=== PATIENT | female | born 1980 | race African-American/Black ===

== ENCOUNTER 2020-03-19 23:28 | Emergency (ER) | payer SELFPAY ==
[~2020-03-19] VITALS: Ht 160 cm; Wt 50.8 kg
[2020-03-19 23:34] VITALS: BP 131/79
--- NOTE | 2020-03-19 23:41 | NUR ---
PT TAKEN TO BED 4
--- NOTE | 2020-03-19 23:46 | NUR ---
CALL MADE TO [employer]. -- PD TO BE ENROUTE TO ED TO INTERVIEW PATIENT. NO ETA GIVEN.
--- NOTE | 2020-03-19 23:52 | NUR ---
Dr. Alanis examining patient.
[2020-03-19] MEDS ORDERED: BACITRACIN OINT 500 UNITS/GM PKT TP ONE (23:55)
--- NOTE | 2020-03-20 | NUR ---
PT AMBULATED TO RESTROOM WITH STEADY GAIT. URINE COLLECTED, DIP AND PREG COMPETED. PT CLEAR FOR CT.
--- NOTE | 2020-03-20 00:05 | NUR ---
OFFICER ALLAN GARCIA AT BEDSIDE FOR INTERVIEW.
--- NOTE | 2020-03-20 00:05 | NUR ---
Shahab greenfield in [facility] - 03/20/20 at 0005 by [employer] [employer] AT BEDSIDE
--- NOTE | 2020-03-20 00:09 | NUR ---
PT TAKEN TO CT VIA WHEELCHAIR
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
--- NOTE | 2020-03-20 00:31 | NUR ---
PT TAKEN TO RADIOLOGY
--- NOTE | 2020-03-20 00:31 | NUR ---
PT RETURNED FROM CT
[2020-03-20] MEDS ORDERED: KETOROLAC 60 MG/2 ML VIAL IM ONE (00:35)
--- NOTE | 2020-03-20 00:41 | NUR ---
PT REFUSED TO MAKE A REPORT WITH PD AND WILL NOT STATE BOYFRIENDS NAME OR CONTACT INFO.
--- NOTE | 2020-03-20 00:42 | NUR ---
SHIRA REVELES AT BEDSIDE CLEANING AND DRESSING WOUNDS
--- NOTE | 2020-03-20 01:57 | NUR ---
pt has been cleared for d/c, however, she has no purse, money, or cell phone. states she[facility] staying [facility] in [place]. i called 4 different locations and there was noone in that particular room or by rhe 2 names she gave me. unable to provide with taxi voucher due to not having a specific address to go to. pt given bus pass but buses will not start runnimg until 5am. pt will leave at that time.
--- NOTE | 2020-03-20 05:21 | NUR ---
PT STATES "CAN I GO HOME NOW". PT LEFT FACILITY AT THIS TIME. PT DECLINED OFFER FOR HOMELESS RESOURCES, BUT DID ACCEPT BUS PASS. ALL QUESTIONS ANSWERED.
[2020-03-20 05:22] VITALS: BP 131/79
== END 2020-03-20 05:21 | disposition home or self-care (01) ==
LOC: MED 23:28
DX: S60.511A Abrasion of right hand, initial encounter (principal); R51 Headache; F17.210 Nicotine dependence, cigarettes, uncomplicated; X58.XXXA Exposure to other specified factors, initial encounter; Y93.89 Activity, other specified; Y92.89 Other specified places as the place of occurrence of the external cause; Y99.8 Other external cause status
CPT/HCPCS: 70450; 70486; 73130; 81002; 81025; 90471; 90715; 96372; 99285; J1885; 99284